=== PATIENT | female | born 1960 | race Hispanic/Latino ===

== ENCOUNTER 2018-11-10 08:39 | Emergency (ER) | payer OTHER ==
[2018-11-10] MEDS ORDERED: TETANUS/DIPHTHERIA TOXOID [ADULT] 0.5 ML VIAL IM ONE (09:25)
[2018-11-10] MEDS ORDERED: LIDOCAINE HCL 1% 20 ML VIAL ONE (09:26)
[2018-11-10] MEDS ORDERED: NEOMY SULF/BACITRA/POLYMYXIN B 1 EACH PACKET TP ONE (09:50)
== END 2018-11-10 10:16 | disposition home or self-care (01) ==
LOC: EDH 08:39
DX: S61.411A Laceration without foreign body of right hand, initial encounter (principal); Z79.899 Other long term (current) drug therapy; X58.XXXA Exposure to other specified factors, initial encounter; Y93.89 Activity, other specified; Y92.89 Other specified places as the place of occurrence of the external cause; Y99.8 Other external cause status
CPT/HCPCS: 12042; 90471; 90714

== ENCOUNTER 2019-01-31 06:10 | Inpatient (IN) | payer SELFPAY ==
[~2019-01-31] VITALS: Ht 154.9 cm; Wt 79.3 kg
[2019-01-31 06:46] LABS: BASOPHILS % (AUTO) 0.8 % (0.0-5.0); CREATININE 0.5 mg/dL (0.5-1.5); EOSINOPHILS % (AUTO) 1.5 % (0.0-8.0); HEMATOCRIT 39.2 % (36-48); LYMPHOCYTES % (AUTO) 38.6 % (21.0-51.0); MEAN CORPUSCULAR HEMOGLOBIN 28.4 pg (27.0-33.0); MEAN CORPUSCULAR HGB CONC 33.1 g/dL (32.0-36.0); MEAN CORPUSCULAR VOLUME 85.9 fL (79-99); MONOCYTES % (AUTO) 4.4 % (3.0-13.0); NEUTROPHILS % (AUTO) 54.7 % (40.0-77.0); NUCLEATED RED BLOOD CELLS 0.1 % (0.0-0.19); PLATELET COUNT (AUTO) 237 K/uL (130-400); POTASSIUM 5.3 mmol/L (3.5-5.1); RED BLOOD CELL COUNT(AUTO) 4.57 MIL/uL (4.00-5.50); RED CELL DISTRIBUTION WIDTH 14.5 % (11.0-15.5); WHITE BLOOD COUNT (AUTO) 6.7 K/uL (4.8-10.8)
[2019-01-31 06:52] LABS: BILIRUBIN,TOTAL 0.4 mg/dL (0.2-1.0); TOTAL PROTEIN, SERUM 6.7 g/dL (6.0-8.3)
[2019-01-31] MEDS ORDERED: CLOPIDOGREL BISULFATE 300 MG TAB ONE (07:18)
[2019-01-31 07:25] LABS: INR 0.92 (0.85-1.15); PARTIAL THROMBOPLASTIN TIME 22.9 SEC (26.3-35.5); PROTHROMBIN TIME 9.7 SEC (9.6-11.6)
[2019-01-31] MEDS ORDERED: ONDANSETRON HCL 4 MG/2 ML VIAL ONE (07:50)
[2019-01-31] MEDS ORDERED: MORPHINE SULFATE 4 MG/1ML SYG ONE (07:50)
[2019-01-31 07:52] LABS: APPEARANCE,URINE Clear (CLEAR); BILIRUBIN,URINE Negative (NEGATIVE); COLOR,URINE Yellow (YELLOW); GLUCOSE, URINE (UA) Negative (NEGATIVE); KETONES,URINE Negative (NEGATIVE); LEUKOCYTE ESTERASE ,URINE Negative (NEGATIVE); NITRATE,URINE Negative (NEGATIVE); OCCULT BLOOD,URINE Trace (NEGATIVE); PROTEIN,URINE Negative (NEGATIVE); UROBILINOGEN,URINE 0.2 mg/dL (0.2-1.0)
[2019-01-31 08:44] LABS: BACTERIA,URINE Rare /HPF (None Seen); RBC,URINE 0-1 /HPF (0-1); SQUAMOUS EPITHELIAL CELL,UR Rare /HPF (0-2); WBC,URINE 0-1 /HPF (0-1)
[2019-01-31] MEDS ORDERED: ACETAMINOPHEN 325 MG TAB PO PRN (10:30)
[2019-01-31] MEDS ORDERED: HYDROCODONE/ACETAMINOPHEN 5/325 MG TAB PO PRN (10:30)
[2019-01-31] MEDS ORDERED: PANTOPRAZOLE SODIUM 40 MG TABLET.DR PO SCH (10:30)
[2019-01-31] MEDS ORDERED: ONDANSETRON HCL 4 MG/2 ML VIAL IV PRN (10:30)
[2019-01-31] MEDS: NITROGLYCERIN 1GM/1 INCH PACKET TD SCH ×2 (10:30→18:30)
[2019-01-31] MEDS ORDERED: SODIUM POLYSTYRENE SULFONATE 15 GM/60 ML ML PO SCH (10:30)
[2019-01-31] MEDS ORDERED: MORPHINE SULFATE 2 MG/ML 1ML SYG IVP PRN (10:30)
[2019-01-31] MEDS ORDERED: ENOXAPARIN SODIUM 30 MG/0.3 ML SQ ONE (10:40)
[2019-01-31] MEDS ORDERED: PANTOPRAZOLE SODIUM 40 MG TABLET.DR PO ONE (10:41)
[2019-01-31] MEDS ORDERED: SODIUM CHLORIDE 0.9% 1000ML 1,000 ML IV ONE (10:41)
[2019-01-31] MEDS ORDERED: SODIUM POLYSTYRENE SULFONATE 15 GM/60 ML ML ONE (10:55)
[2019-01-31] MEDS ORDERED: NITROGLYCERIN 1GM/1 INCH PACKET TD ONE (10:55)
[2019-01-31] MEDS ORDERED: ATORVASTATIN CALCIUM 40 MG TABLET PO SCH (11:00)
[2019-01-31] MEDS ORDERED: ATORVASTATIN CALCIUM 20 MG TABLET PO SCH (11:15)
[2019-01-31] MEDS ORDERED: ASPIRIN 325MG EC TAB 325 MG TABLET.DR PO SCH (13:45)
[2019-01-31 14:40] VITALS: BP 130/76
[2019-01-31 16:00] VITALS: BP 126/66
[2019-01-31] MEDS: SODIUM CHLORIDE 0.9% 1000ML 1,000 ML IV SCH (19:57)
[2019-01-31 20:00] VITALS: BP 114/67
--- NOTE | 2019-01-31 20:00 | NUR ---
ASSESS SHIFT ASSESSMENT DONE, PLEASE REFER TO CHART. INSTRUCTED TO BE NPO POST MN, FOR LEXISCAN IN AM. PT VERBALIZES UNDERSTANDING. PT WANTED TO SHOWER, SALINE LOCKED AND COVERED PIV. PT IS INDEPENDENT WITH ADL'S AT THIS TIME. PCP IN TO ASSIST WITH LINEN CHANGE. Addendum: 02/01/19 at 0021 by ROBERT JOSHUA RN RN Amended: Links added.
[2019-02-01] VITALS: BP 119/71
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
[2019-02-01] MEDS: NITROGLYCERIN 1GM/1 INCH PACKET TD SCH ×2 (02:30→10:30)
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
[2019-02-01 04:00] VITALS: BP 105/58
[2019-02-01] MEDS: SODIUM CHLORIDE 0.9% 1000ML 1,000 ML IV SCH (05:07)
--- NOTE | 2019-02-01 05:52 | NUR ---
ROUNDS PT RESTING WELL, FAIRLY ASLEEP. NO DISTRESS NOTED. KEPT NPO FOR PENDING LEXISCAN TODAY. FOR MORE CARE.
[2019-02-01 06:02] LABS: BASOPHILS % (AUTO) 0.5 % (0.0-5.0); EOSINOPHILS % (AUTO) 1.2 % (0.0-8.0); HEMATOCRIT 35.3 % (36-48); LYMPHOCYTES % (AUTO) 38.6 % (21.0-51.0); MEAN CORPUSCULAR HEMOGLOBIN 28.7 pg (27.0-33.0); MEAN CORPUSCULAR HGB CONC 33.8 g/dL (32.0-36.0); MEAN CORPUSCULAR VOLUME 84.9 fL (79-99); MONOCYTES % (AUTO) 4.2 % (3.0-13.0); NEUTROPHILS % (AUTO) 55.5 % (40.0-77.0); NUCLEATED RED BLOOD CELLS 0.1 % (0.0-0.19); PLATELET COUNT (AUTO) 255 K/uL (130-400); RED BLOOD CELL COUNT(AUTO) 4.16 MIL/uL (4.00-5.50); RED CELL DISTRIBUTION WIDTH 14.5 % (11.0-15.5); WHITE BLOOD COUNT (AUTO) 7.4 K/uL (4.8-10.8)
[2019-02-01 06:22] LABS: CREATININE 0.6 mg/dL (0.5-1.5); POTASSIUM 3.7 mmol/L (3.5-5.1)
[2019-02-01 08:00] VITALS: BP 141/85
[2019-02-01] MEDS ORDERED: REGADENOSON 0.4 MG/5 ML PF SYG IVP SCH (08:30)
[2019-02-01] MEDS ORDERED: ASPIRIN 81MG TAB.CHEW PO SCH (09:00)
[2019-02-01] MEDS ORDERED: ENOXAPARIN SODIUM 30 MG/0.3 ML SQ SCH (09:00)
[2019-02-01] MEDS ORDERED: PANTOPRAZOLE SODIUM 40 MG TABLET.DR PO SCH (09:00)
[2019-02-01] MEDS ORDERED: ATORVASTATIN CALCIUM 20 MG TABLET PO SCH (09:00)
[2019-02-01 12:00] VITALS: BP 156/82
[2019-02-01] MEDS ORDERED: PHARMACY COMMUNICATION MISC SCH (14:45)
--- NOTE | 2019-02-01 15:09 | NUR ---
PT SEEN IN ROOM , READY FOR DISCHARGE PT AMBULATORY, ALERT, NO DME; SON READY TO TRANSPORT HOME; ADMITS HAS NOT SOUGHT OUT ANY LOW COST CLINICE; SELF PAY PKT GIVEN, DETAILED CM ASSESSMENT DEFERRED Addendum: 02/01/19 at 1512 by NICOLETTE STUART RN CM Amended: Links added.
[2019-02-01 16:00] VITALS: BP 142/63
== END 2019-02-01 17:40 | disposition home or self-care (01) | DRG 392 ==
LOC: EDH 06:10 → EDHIP 06:11 → 3CH 13:18
PROVIDERS: ADMIT Internal Medicine; ATTEND Internal Medicine
DX: K21.9 Gastro-esophageal reflux disease without esophagitis (principal); M62.82 Rhabdomyolysis; E44.1 Mild protein-calorie malnutrition; I24.9 Acute ischemic heart disease, unspecified; Z88.6 Allergy status to analgesic agent; Z72.0 Tobacco use; Z90.710 Acquired absence of both cervix and uterus; Z68.33 Body mass index [BMI] 33.0-33.9, adult
CPT/HCPCS: 36415; 71045; 78452; 80048; 80053; 80061; 81001; 82550; 84132; 84484; 85025; 85610; 85730; 93005; 93017; 93880; 96374; A9500; G0378; J1650; J2270; J2405; J2785; J7030

== ENCOUNTER → 2022-06-02 | Outpatient (CLI) | payer OTHER | END | disposition home or self-care (01) | LOC: RAH 13:15 | PROVIDERS: ATTEND Family Medicine | DX: I51.7 Cardiomegaly (principal); I51.89 Other ill-defined heart diseases; R94.31 Abnormal electrocardiogram [ECG] [EKG]; R07.9 Chest pain, unspecified | CPT/HCPCS: 93306 ==

== ENCOUNTER → 2023-02-23 | Outpatient (CLI) | payer OTHER, MEDICARE | END | disposition home or self-care (01) | LOC: RAH 08:20 | PROVIDERS: ATTEND Family Medicine | DX: R31.9 Hematuria, unspecified (principal) | CPT/HCPCS: 76770 ==